=== PATIENT | male | born 1985 | race Caucasian/White ===

== ENCOUNTER 2020-06-11 18:47 | Emergency (ER) | payer OTHER, SELFPAY ==
--- NOTE | 2020-06-11 18:48 | W.ED.GENAD ---
Discharge Plan Disposition Patient Disposition: HOME Condition: Good Discharge Details Clinical Impression: Fracture of rib Primary Care Provider: None,None ED Provider: Marietta Sawyer Home Meds and New Rx's Prescriptions: No Action No Known Home Meds RF: 0 Discharge Instructions Instructions: Rib Fracture (ED) Additional Instructions: You have a 9th rib fracture consistent with area of discomfort. Please encourage deep breaths to help prevent pneumonia. Tylenol and/or ibuprofen as needed for discomfort. You may also try topical options as lidocaine patches. He will need follow-up with occupational health. Please call Saturday to schedule appointment, number listed below. If you develop difficulty breathing, shortness of breath, fever/chills or other new/worsening symptoms to seek care urgently once again. Please avoid activities that cause increased discomfort. Stand Alone Forms: Work Release Referrals: Occupational Medicine [Outside] Discharge Data Discharge Date/Time-TO BE ENTERED AT DEPARTURE: 06/11/20 20:05 Medical Decision Making The patient is a pleasant 35-year-old gentleman presenting today with chief complaint of left anterior lower rib pain. He reports that 4 days ago he was snowboarding while at work, he fell and landed against a large piece of compacted snow. Since that time is been having discomfort. Pain is worsened with deep inspiration and feels acute shallow breaths. He denies any cough. No fevers or chills. No difficulty breathing. Patient is an active smoker. He has not taken anything for his discomfort. He denies other injury the time of the incident. On exam, patient appears nontoxic. Lungs are clear. Area swelling the left anterior lower chest wall over rib. This is the area of tenderness. No crepitus. No midline tenderness, no midline paraspinal tenderness. FINDINGS: Bones/joints: There is a fracture of the anterior aspect of the left 9th rib with minimal cortical step-off. Soft tissues: Unremarkable. IMPRESSION: Left 9th rib fracture. FINDINGS: Lungs: Lungs are clear without consolidation. Pulmonary ria: Unremarkable contours. Pleural spaces: No pleural effusion. No pneumothorax. Heart/Mediastinum: Unremarkable contours. No cardiomegaly. Bones/joints: Unremarkable. Intraperitoneal space: Visualized upper abdomen is unremarkable. IMPRESSION: No acute findings. No pneumothorax. I discussed the findings with the patient. Advised Tylenol and/or ibuprofen. We will send the patient home with incentive spirometer. Encourage deep breathing. Encourage water intake. Encourage smoking cessation. Advise follow-up with occupational health in the next week. Return precautions were discussed. We discussed activities that he should avoid. All of his questions and concerns were addressed and he is agreement this plan. HPI General Mode of arrival: ambulatory. Date/Time Provider Initiated Documentation: 06/11/20 18:48. Limitations to Documentation: no limitations. Information obtained by: patient and RN notes reviewed. History of Present Illness 35 year old M presents to the emergency department with the chief complaint of left rib pain, described as severe, with intensity rated at 8. Quality is described as sharp, and is localized to the chest. Patient reports no radiation. Patient started experiencing this day(s) (5) and it has been constant. Immobilization improves symptom(s), Movement worsens symptoms . Patient notes shortness of breath (feels like he is taking shallow breaths). Patient did receive the following treatments prior to arrival, none Related Data Home Medications Medication Instructions Recorded Confirmed Unknown [No Known Home Meds] 06/11/20 06/11/20 Allergies Allergy/AdvReac Type Severity Reaction Status Date / Time No Known Allergies Allergy Unverified 06/11/20 19:02 Review of Systems Constitutional Constitutional: Reports as per HPI, Denies chills, Denies fever(s), Denies headache(s), Denies lethargy and Denies poor appetite Eyes Eyes: Denies change in vision ENT Ears, Nose, Mouth, and Throat: Denies dizziness and Denies headache(s) Cardiovascular Cardiovascular: Reports as per HPI, Reports chest pain (rib pain), Reports dyspnea and Denies dyspnea on exertion Respiratory Respiratory: Reports as per HPI, Denies chest congestion, Denies cough, Denies pain on inspiration, Denies pain with cough, Reports dyspnea, Denies dyspnea on exertion and Denies wheezing Gastrointestinal Gastrointestinal: Reports as per HPI, Denies abdominal pain, Denies diarrhea, Denies nausea and Denies vomiting Genitourinary Genitourinary: Denies system reviewed and no additional complaints, except as documented (denies change in urinary habits) Musculoskeletal Musculoskeletal: Reports as per HPI and Denies back pain Integumentary/Breasts Skin/Breast: Reports as per HPI and Denies rash Neurologic Neurologic: Reports as per HPI, Denies dizziness and Denies headache(s) Allergic/Immunologic Allergic/Immunologic: Denies wheezing PFSH Social History Smoking/Tobacco Use Status: Current every day Smoking risk assessment performed?: Yes Alcohol Intake: current Alcohol Intake frequency: holidays/special occasions only Drug use: Daily Substance use type: marijuana Do you feel safe at home: Yes Do you feel safe in your relationship?: Yes Exam Const General: cooperative, healthy appearing, comfortable, no acute distress and well developed Nutritional Appearance: average body habitus and well nourished Orientation: alert, awake and oriented x3 [facility] Head: normal to inspection Ears: hearing grossly normal bilaterally Mouth: moist mucous membranes Chest Chest: normal inspection of the chest, normal palpation of entire chest wall, no crepitus and localized rib tenderness with anteroposterior compression (anterior lower left chest wall pain with area of swelling) Resp Effort & Inspection: normal respiratory effort, able to speak in complete sentences and no respiratory distress Auscultation: clear to auscultation bilaterally, no rales, no rhonchi and no wheezes Cardio Rate: regular rate Rhythm: regular rhythm Heart Sounds: S1 normal and S2 normal GI Inspection: normal to inspection, no edema and non-distended Palpation: soft, no hepatosplenomegaly, not firm, no guarding, not rigid and nontender Auscultation: normal bowel sounds Back/Spine/Pelvis Back: no CVA tenderness Thoracic/Lumbar Spine: thoracic and lumbar spine normal to inspection, No paraspinal tenderness, No thoracic spinal tenderness and No lumbar spinal tenderness Skin General skin exam: no rashes or lesions noted Trauma: no lacerations or abrasions Neuro General: patient alert, patient awake and patient oriented x3 Cognition: normal cognition Speech: speech normal Gait: normal gait Extrem General: normal to inspection, capillary refill normal, no pedal edema, no calf tenderness and normal gait Psych Appearance: grossly normal and well kempt Mental Status: mental status grossly normal Speech and Movement: speech and movement normal
[2020-06-11 18:55] VITALS: BP 124/71; PULSE 67; RESP 18; TEMP 36.9; O2SAT 96
--- NOTE | 2020-06-11 19:15 | DI.RAD_ITS ---
EXAM: XR RIBS LT W PA LAT CHEST CLINICAL HISTORY: fall snowboarding, struck left lower anterior ches TECHNIQUE: 2D digital imaging was performed. COMPARISON: No exams were available for comparison FINDINGS: MEDIASTINUM: Normal. HEART: Normal. PULMONARY VASCULATURE: Normal. LUNGS: Clear. PLEURAL SPACE: No pleural effusion or pneumothorax. BONE:Normal. LEFT RIBS: On series 6, image 1, there is a question of a fracture of the anterior aspect of the left 9th rib. It is not appreciated on any of the other views and may be secondary to superimposition of the adjacent 8th rib on that view. OTHER FINDINGS:Normal. IMPRESSION: 1. No acute pulmonary findings. 2. Question of a fracture of the anterior aspect of the left 9th rib versus artifact due to superimpo sition of the 8th rib. DATA REPOSITORY: RADIATION DOSE DELIVERED:
--- NOTE | 2020-06-11 19:50 | DI.VRAD_ITS ---
PROCEDURE INFORMATION: Exam: XR Left Ribs Exam date and time: 06/11/2020 7:35 PM Age: 35 years old Clinical indication: Injury or trauma; Blunt trauma (contusions or hematomas); Rib area, left side; Patient HX: Fall snowboarding, struck left lower anterior chest TECHNIQUE: Imaging protocol: XR Left ribs. Views: 2 views. Total images: 5 COMPARISON: No relevant prior studies available. FINDINGS: Bones/joints: There is a fracture of the anterior aspect of the left 9th rib with minimal cortical step-off. Soft tissues: Unremarkable. IMPRESSION: Left 9th rib fracture. PROCEDURE INFORMATION: Exam: XR Chest, 2 Views Exam date and time: 06/11/2020 7:35 PM Age: 35 years old Clinical indication: Injury or trauma; Blunt trauma (contusions or hematomas); Rib area, left side; Patient HX: Fall snowboarding, struck left lower anterior chest TECHNIQUE: Imaging protocol: XR of the chest Views: 2 views. COMPARISON: No relevant prior studies available. FINDINGS: Lungs: Lungs are clear without consolidation. Pulmonary ria: Unremarkable contours. Pleural spaces: No pleural effusion. No pneumothorax. Heart/Mediastinum: Unremarkable contours. No cardiomegaly. Bones/joints: Unremarkable. Intraperitoneal space: Visualized upper abdomen is unremarkable. IMPRESSION: No acute findings. No pneumothorax. Dictated and Authenticated by: Dion Hopson MD. Ordering:MEGAN Mcmanus MD
--- NOTE | 2020-06-11 20:05 | NUR.NOTE ---
Referral faxed to occupational medicine for follow up care regarding patient ER visit. Nursing Note:
--- NOTE | 2020-06-11 20:23 | NUR.NOTE ---
Nursing Note:Patient did not get Incentive Spirometer at discharge. Spoke with patient on the phone , states he will pick it up tomorrow. Let him know it would be at the registration desk where he checked in.
== END 2020-06-11 20:05 | disposition home or self-care (01) ==
PROVIDERS: Emergency Provider Physician Assistant
DX: S22.32XA Fracture of one rib, left side, initial encounter for closed fracture (principal); V00.311A Fall from snowboard, initial encounter; Y93.23 Activity, snow (alpine) (downhill) skiing, snowboarding, sledding, tobogganing and snow tubing; Y99.0 Civilian activity done for income or pay
CPT/HCPCS: 99283; 71046; 71100